=== PATIENT | female | born 1940 | race Caucasian/White ===

== ENCOUNTER 2017-08-04 19:27 | Emergency (ER) | payer MEDICARE ==
[~2017-08-04] VITALS: Ht 162.6 cm; Wt 100.0 kg
[~2017-08-04 19:27] MED LIST: ACCOLATE10 MG; ATENOLOL50 MG PO; FISH OIL1000 MG PO; LISINOPRIL20 MG; LORTAB 7.5 OR; MULT VITAMI1 OR; POT CHLORIDE10 ME1 PO; TRAMADOL HCL50 MG PO; VALTREX500 MG OR; VERAPAMIL240 M1 OR; ZOLOFT25 MG PO
[2017-08-04 21:07] LABS: HEMATOCRIT 34.8 % (37.0-47.0); HEMOGLOBIN 11.2 g/dl (12.0-16.0); IMMATURE GRANULOCYTES 0.2 % (0.0-1.0); MEAN CELL VOLUME 91.1 fL CALC (80.0-100.0); MEAN CORPUSCULAR HGB 29.3 pG CALC (26.0-32.0); MEAN CORPUSCULAR HGB CONC 32.2 g/L CALC (32.0-36.0); NEUT# 3.39 thou/uL (2.00-7.15); RED BLOOD COUNT 3.82 mill/uL (4.20-5.60)
[2017-08-04 21:33] LABS: ALBUMIN 3.8 g/dL (3.2-5.0); ALKALINE PHOSPHATASE 66 u/l (38-126); ANION GAP 13 (6-22 (CALC)); BILIRUBIN, TOTAL 0.5 mg/dL (0.0-1.4); BUN 20 mg/dL (8-23); BUN/CREATININE RATIO 29 (12-20 (CALC)); CALCIUM 9.7 mg/dL (8.4-10.2); CARBON DIOXIDE 25 mmol/l (22-30); CHLORIDE 108 mmol/l (95-108); CREATININE 0.7 mg/dL (0.5-1.0); GFR > 60 ML/MIN (>=60 (CALC)); GFR FOR AFR.AMER. > 60 ML/MIN (>=60 (CALC)); GLUCOSE 101 mg/dL (82-115); POTASSIUM 3.9 mmol/l (3.5-5.1); SGOT/AST 24 u/l (9-36); SGPT/ALT 36 u/l (11-66); SODIUM 141 mmol/l (137-146); TOTAL PROTEIN 6.6 g/dL (6.3-8.2)
[2017-08-04 21:34] LABS: ACT PARTIAL THROMBO TIME 23.8 SECONDS (20.0-32.5); PROTHROMBIN TIME 10.7 SECONDS (9.0-12.5)
[2017-08-04 21:45] LABS: MYOGLOBIN 40 ng/mL (0 - 62)
[2017-08-04 21:55] VITALS: BP 188/65
== END 2017-08-04 21:56 | disposition short-term general hospital (02) ==
LOC: ED 19:27
PROVIDERS: Emergency Medicine
DX: R94.02 Abnormal brain scan (principal); I63.9 Cerebral infarction, unspecified; I10 Essential (primary) hypertension; R29.700 NIHSS score 0; R20.2 Paresthesia of skin; F41.9 Anxiety disorder, unspecified; R51 Headache